=== PATIENT | male | born 1995 | race American Indian/Alaskan Native ===

== ENCOUNTER 2019-11-12 10:09 | Emergency (ER) | payer SELFPAY ==
[2019-11-12 10:16] VITALS: BP 139/86
[2019-11-12] MEDS ORDERED: ASPIRIN 81 MG TAB CHEW PO ONE (12:31)
[2019-11-12 12:58] LABS: Basophils % (Auto) 0.5 % (0.0-1.8); Eosinophils # (Auto) 0.1 K/mm3 (0.0-0.4); Eosinophils % (Auto) 0.8 % (0.0-4.3); Hematocrit 41.4 % (35.5-45.6); Hemoglobin 14.5 gm/dl (11.8-15.2); Lymphocytes # (Auto) 2.4 K/mm3 (1.2-5.4); Mean Corpuscular HGB Conc 35 % (32-34); Mean Corpuscular Volume 92 fl (84-94); Monocytes # (Auto) 0.7 K/mm3 (0.0-0.8); Monocytes % (Auto) 8.2 % (0.0-7.3); Platelet Count 316 K/mm3 (140-440); Red Cell Distribution Width 13.4 % (13.2-15.2)
[2019-11-12 13:15] LABS: Alanine Aminotransferase 25 units/L (7-56); Albumin 4.8 g/dL (3.9-5); BUN/Creatinine Ratio 13; Blood Urea Nitrogen 12 mg/dL (9-20); Hemolysis Index 13
--- NOTE | 2019-11-12 13:23 | XRay Report ---
CHEST PA AND LATERAL VIEWS INDICATION: Chest Pain. COMPARISON: None. FINDINGS: Support devices: None. Heart: Within normal limits. Lungs/Pleura: No acute pulmonary or pleural findings. IMPRESSION: 1. No acute findings. Signer Name: Cheo Powers MD Signed: 11/12/2019 1:19 PM Workstation Name: [id number]
--- NOTE | 2019-11-12 16:27 | Cat Scan Report ---
CTA CHEST WITH IV CONTRAST INDICATION: Chest pain, shortness of breath. TECHNIQUE: Axial CT images were obtained through the chest after injection of 100 cc Omnipaque 350 IV contrast. 3 plane MIP reconstructions were produced. All CT scans at this location are performed using CT dose reduction for ALARA by means of automated exposure control. COMPARISON: None available. FINDINGS: Pulmonary Arteries: No pulmonary emboli. Thoracic Aorta: No acute abnormality. Heart: Normal. Lungs: No acute air space or interstitial disease. Pleura: No pleural effusion. No pneumothorax. Lymph Nodes: No significant adenopathy. Additional Findings: None. Upper Abdomen: No acute findings. Skeletal Structures: No significant osseous abnormality. IMPRESSION: 1. No CT evidence for pulmonary embolism. 2. No acute findings. Signer Name: hCeo Powers MD Signed: 11/12/2019 4:22 PM Workstation Name: [id number]
--- NOTE | 2019-11-12 16:39 | Emergency Department Report ---
<CINTHIA MALLORY - Last Filed: 11/13/19 19:17> ED Chest Pain HPI - General Chief Complaint: Chest Pain Stated Complaint: CP Time Seen by Provider: 11/12/19 12:22 Source: patient Mode of arrival: Ambulatory Limitations: No Limitations - History of Present Illness Initial Comments: Patient is a 24-year-old male presents emergency room with complaints of left- sided and substernal chest pain that began 4 days ago. He states that last night the pain felt constant. He states he feels a heaviness like someone is sitting on his chest and then occasionally has sharp stabbing pain. Patient states he took a baby aspirin today. He states he has associated nausea. He denies any radiation of the pain to the back or down the arms. He denies any vomiting, diarrhea, leg swelling, abdominal pain. He states that occasionally he does feel short of breath. He denies any past medical history. No allergies to medications. He states his family cardiac history is that his grandfather had an MA in his 60s. He denies any recent travel, recent surgery, immobilization. He states that he does take supplements such as creatine and protein. He states he previously smoked tobacco. He states he does drink alcohol. He denies any drug use. Severity scale (0 -10): 5 - Related Data Previous Rx's Medication Instructions Recorded Last Taken Type Magnesium Citrate 296 ml PO ONCE #1 bottle 03/01/15 Unknown Rx Azithromycin [Zithromax] 250 mg PO QDAY #4 tablet 03/18/15 Unknown Rx Promethazine /Codeine 5 ml PO Q6H PRN #120 ml 03/18/15 Unknown Rx [Phenergan/Codeine 6.25-10 mg/5Ml] Clindamycin [Clindamycin CAP] 300 mg PO Q8HR #60 capsule 11/02/19 Unknown Rx Ketorolac [Toradol] 10 mg PO Q8H PRN #20 tablet 11/02/19 Unknown Rx hydrOXYzine PAMOATE [Vistaril] 25 mg PO Q12HR PRN #20 capsule 11/02/19 Unknown Rx traMADoL [Ultram 50 MG tab] 50 mg PO Q6HR PRN #12 tablet 11/02/19 Unknown Rx Allergies Allergy/AdvReac Type Severity Reaction Status Date / Time No Known Allergies Allergy Verified 03/18/15 18:59 Heart Score - HEART Score History: Moderately suspicious EKG: Non-specific Age: < 45 Risk factors: 1-2 risk factors Troponin: < normal limit HEART Score: 3 ED Review of Systems Comment: All other systems reviewed and negative ED Past Medical Hx - Past Medical History Previous Medical History?: No - Surgical History Past Surgical History?: No - Social History Smoking Status: Former Smoker Substance Use Type: None - Medications Home Medications: Home Medications Medication Instructions Recorded Confirmed Last Taken Type Magnesium Citrate 296 ml PO ONCE #1 bottle 03/01/15 Unknown Rx Azithromycin [Zithromax] 250 mg PO QDAY #4 tablet 03/18/15 Unknown Rx Promethazine /Codeine 5 ml PO Q6H PRN #120 ml 03/18/15 Unknown Rx [Phenergan/Codeine 6.25-10 mg/5Ml] Clindamycin [Clindamycin CAP] 300 mg PO Q8HR #60 capsule 11/02/19 Unknown Rx Ketorolac [Toradol] 10 mg PO Q8H PRN #20 tablet 11/02/19 Unknown Rx hydrOXYzine PAMOATE [Vistaril] 25 mg PO Q12HR PRN #20 capsule 11/02/19 Unknown Rx traMADoL [Ultram 50 MG tab] 50 mg PO Q6HR PRN #12 tablet 11/02/19 Unknown Rx ED Physical Exam - General Limitations: No Limitations General appearance: alert, in no apparent distress - Head Head exam: Present: atraumatic, normocephalic - Eye Eye exam: Present: normal appearance - ENT ENT exam: Present: mucous membranes moist - Respiratory Respiratory exam: Present: normal lung sounds bilaterally. Absent: respiratory distress, wheezes, rales, rhonchi, stridor, chest wall tenderness, accessory muscle use, decreased breath sounds, prolonged expiratory - Cardiovascular Cardiovascular Exam: Present: regular rate, normal rhythm, normal heart sounds. Absent: systolic murmur, diastolic murmur, rubs, gallop - Extremities Exam Extremities exam: Absent: pedal edema - Neurological Exam Neurological exam: Present: alert, oriented X3 - Psychiatric Psychiatric exam: Present: normal affect, normal mood - Skin Skin exam: Present: warm, dry, intact ED Course - Reevaluation(s) Reevaluation #1: 11/13/19 17:42 Spoke to patient's mother did not give any personal health information, just advised that we needed to speak with the patient urgently. She states that she will get into contact with him and I gave her the hospital number. MIKE score - Mike Score Age > 65: (0) No Aspirin use within the Past 7 Days: (1) Yes 3 or more CAD Risk Factors: (0) No 2 or more Angina events in past 24 hrs: (0) No Known CAD with more than 50% Stenosis: (0) No Elevated Cardiac Markers: (0) No ST Deviation Greater than 0.5mm: (0) No MIKE Score: 1 ED Medical Decision Making - Lab Data Result diagrams: 11/12/19 12:35 11/12/19 12:35 Lab Results 11/12/19 11/12/19 11/12/19 Range/Units 12:35 12:35 13:42 WBC 8.2 (4.5-11.0) K/mm3 RBC 4.50 (3.65-5.03) M/mm3 Hgb 14.5 (11.8-15.2) gm/dl Hct 41.4 (35.5-45.6) % MCV 92 (84-94) fl MCH 32 (28-32) pg MCHC 35 H (32-34) % RDW 13.4 (13.2-15.2) % Plt Count 316 (140-440) K/mm3 Lymph % (Auto) 29.0 (13.4-35.0) % [place] % (Auto) 8.2 H (0.0-7.3) % Eos % (Auto) 0.8 (0.0-4.3) % Baso % (Auto) 0.5 (0.0-1.8) % Lymph # 2.4 (1.2-5.4) K/mm3 [place] # 0.7 (0.0-0.8) K/mm3 Eos # 0.1 (0.0-0.4) K/mm3 Baso # 0.0 (0.0-0.1) K/mm3 Seg Neutrophils % 61.5 (40.0-70.0) % Seg Neutrophils # 5.0 (1.8-7.7) K/mm3 Sodium 139 (137-145) mmol/L Potassium 3.8 (3.6-5.0) mmol/L Chloride 100.1 (98-107) mmol/L Carbon Dioxide 25 (22-30) mmol/L Anion Gap 18 mmol/L BUN 12 (9-20) mg/dL Creatinine 0.9 (0.8-1.3) mg/dL Estimated GFR > 60 ml/min BUN/Creatinine Ratio 13 % Glucose 98 (75-100) mg/dL Calcium 10.0 (8.4-10.2) mg/dL Magnesium (1.7-2.3) mg/dL Total Bilirubin 0.40 (0.1-1.2) mg/dL AST 51 H (5-40) units/L ALT 25 (7-56) units/L Alkaline Phosphatase 55 (35-129) units/L Total Creatine Kinase (55-170) units/L Troponin T < 0.010 < 0.010 (0.00-0.029) ng/mL NT-Pro-B Natriuret Pep 10.86 (0-450) pg/mL Total Protein 8.4 H (6.3-8.2) g/dL Albumin 4.8 (3.9-5) g/dL Albumin/Globulin Ratio 1.3 % TSH (0.270-4.200) mlU/mL 11/12/19 11/12/19 Range/Units 13:42 13:42 WBC (4.5-11.0) K/mm3 RBC (3.65-5.03) M/mm3 Hgb (11.8-15.2) gm/dl Hct (35.5-45.6) % MCV (84-94) fl MCH (28-32) pg MCHC (32-34) % RDW (13.2-15.2) % Plt Count (140-440) K/mm3 Lymph % (Auto) (13.4-35.0) % [place] % (Auto) (0.0-7.3) % Eos % (Auto) (0.0-4.3) % Baso % (Auto) (0.0-1.8) % Lymph # (1.2-5.4) K/mm3 [place] # (0.0-0.8) K/mm3 Eos # (0.0-0.4) K/mm3 Baso # (0.0-0.1) K/mm3 Seg Neutrophils % (40.0-70.0) % Seg Neutrophils # (1.8-7.7) K/mm3 Sodium (137-145) mmol/L Potassium (3.6-5.0) mmol/L Chloride (98-107) mmol/L Carbon Dioxide (22-30) mmol/L Anion Gap mmol/L BUN (9-20) mg/dL Creatinine (0.8-1.3) mg/dL Estimated GFR ml/min BUN/Creatinine Ratio % Glucose (75-100) mg/dL Calcium (8.4-10.2) mg/dL Magnesium 2.00 (1.7-2.3) mg/dL Total Bilirubin (0.1-1.2) mg/dL AST (5-40) units/L ALT (7-56) units/L Alkaline Phosphatase (35-129) units/L Total Creatine Kinase 2555 H (55-170) units/L Troponin T (0.00-0.029) ng/mL NT-Pro-B Natriuret Pep (0-450) pg/mL Total Protein (6.3-8.2) g/dL Albumin (3.9-5) g/dL Albumin/Globulin Ratio % TSH 2.490 (0.270-4.200) mlU/mL - EKG Data EKG shows normal: sinus rhythm, axis Rate: bradycardia - EKG Data 11/12/19 10:[address] elevation secondary to IVCD no STEMI 11/12/19 13:[address] Rollins states ST elevation secondary IVCD, no STEMI - Radiology Data Radiology results: report reviewed CHEST PA AND LATERAL VIEWS INDICATION: Chest Pain. COMPARISON: None. FINDINGS: Support devices: None. Heart: Within normal limits. Lungs/Pleura: No acute pulmonary or pleural findings. IMPRESSION: 1. No acute findings. Signer Name: Cheo Powers MD Signed: 11/12/2019 1:19 PM Workstation Name: [id number] Transcribed By: CHRISTOPHER Dictated By: Cheo Powers MD Electronically Authenticated By: Cheo Powers MD Signed Date/Time: 11/12/191318 DD/ 1318 TD/TT: CTA CHEST WITH IV CONTRAST INDICATION: Chest pain, shortness of breath. TECHNIQUE: Axial CT images were obtained through the chest after injection of 100 cc Omnipaque 350 IV contrast. 3 plane MIP reconstructions were produced. All CT scans at this location are performed using CT dose reduction for ALARA by means of automated exposure control. COMPARISON: None available. FINDINGS: Pulmonary Arteries: No pulmonary emboli. Thoracic Aorta: No acute abnormality. Heart: Normal. Lungs: No acute air space or interstitial disease. Pleura: No pleural effusion. No pneumothorax. Lymph Nodes: No significant adenopathy. Additional Findings: None. Upper Abdomen: No acute findings. Skeletal Structures: No significant osseous abnormality. IMPRESSION: 1. No CT evidence for pulmonary embolism. 2. No acute findings. Signer Name: Cheo Powers MD Signed: 11/12/2019 4:22 PM Workstation Name: [id number] Transcribed By: CHRISTOPHER Dictated By: Cheo Powers MD Electronically Authenticated By: Cheo Powers MD Signed Date/Time: 11/12/191621 DD/ 18 TD/TT: - Medical Decision Making Patient is a 24-year-old male presents emergency room with complaints of left- sided and substernal chest pain that began 4 days ago. He states that last night the pain felt constant. He states he feels a heaviness like someone is sitting on his chest and then occasionally has sharp stabbing pain. Patient states he took a baby aspirin today. He states he has associated nausea. He denies any radiation of the pain to the back or down the arms. He denies any vomiting, diarrhea, leg swelling, abdominal pain. He states that occasionally he does feel short of breath. He denies any past medical history. No allergies to medications. He states his family cardiac history is that his grandfather had an MA in his 60s. He denies any recent travel, recent surgery, immobilization. He states that he does take supplements such as creatine and protein. He states he previously smoked tobacco. He states he does drink alcohol. He denies any drug use. Vitals are normal. No abnormality on physical exam as documented in chart. vitals are normal. no abnormality on examination as documented on chart. labs are normal. troponin is negative x2. EKG with sinus bradycardia RBBB, ST elevation secondary to IVCD, no STEMI. repeat EKG with no significant change, Dr. Rollins states ST elevation secondary IVCD, no STEMI. CXR: 1. No acute findings. DR. Rollins ER attending recommended to order CTA chest to r/o lung causes such as PE or aortic dissection, 1. No CT evidence for pulmonary embolism. 2. No acute findings. discussed all findings wi th Dr. Rollins who advised that pt can follow up as an outpatient with cardiology. advised pt Please follow-up with a business supervisor. Please follow-up with your primary care doctor. Return to emergency room for any new or worsening symptoms. Upon reviewing and signing my charts today patient CK resulted after discharge and is 2555, he was not complaining of any dark urine or back pain, his only complaint was the chest pain, patient is healthy and active, he has no kidney dysfunction 11/13/19 17:42 Spoke to patient's mother did not give any personal health information, just advised that we needed to speak with the patient urgently. She states that she will get into contact with him and I gave her the hospital number. I discussed case with Dr. Rollins, ER attending he states that given that patient is healthy with no medical problems elevation in CK is likely not harmful, he states that if patient does present back then to repeat his CK and can give patient IV fluids. ED Disposition Clinical Impression: Nausea, Abnormal EKG Chest pain Qualifiers: Chest pain type: unspecified Qualified Code(s): R07.9 - Chest pain, unspecified Dyspnea Qualifiers: Dyspnea type: unspecified Qualified Code(s): R06.00 - Dyspnea, unspecified Disposition: DC-01 TO HOME OR SELFCARE Is pt being admited?: No Does the pt Need Aspirin: Yes Condition: Stable Instructions: Chest Pain (ED), Dyspnea (ED) Additional Instructions: Please follow-up with a business supervisor. Please follow-up with your primary care doctor. Return to emergency room for any new or worsening symptoms. Referrals: YUNG CURIEL MD [Staff Physician] - 2-3 Days LACEY PERRY MD [Staff Physician] - 2-3 Days Time of Disposition: 16:42 Print Language: CHINESE <YEE BUCK - Last Filed: 11/14/19 22:48> ED Review of Systems ROS: Stated complaint: CP Other details as noted in HPI ED Course Vital Signs 11/12/19 11/12/19 10:14 15:02 Temperature 97.9 F Pulse Rate 60 Respiratory 20 18 Rate Blood Pressure 139/86 [Left] O2 Sat by Pulse 99 99 Oximetry ED Medical Decision Making - Lab Data Result diagrams: 11/12/19 12:35 11/12/19 12:35 - Medical Decision Making 11/14/19 01:35a Patient called the ed regarding message/call that he received yesterday. I am not personally familiar with this patient however, I did review medical record. I explained that call back was regarding elevated CK levels. Patient states he does take creatinine but has not taken in 1 month. He also states that he exercises regularly and has been exercising more lately. He does not complain of any dark discoloration of his urine or [employer] colored urine. I explained that the physician preferred that he come back to the ER for repeat CK levels and IV fluids. Patient states he may come back later today depending on how he feels. I explained to him that if he does not return here that he should at least try to follow-up with a primary care physician for repeat labs. Patient explains that follow-up will be difficult due to lack of insurance. Patient encouraged to present prior to the end of my shift at 6 AM (since I am failure with the pt and can expedite his care). I informed him if he does come this am then make triage nurse aware that he was called back to come to the ED. Critical care attestation.: If time is entered above; I have spent that time in minutes in the direct care of this critically ill patient, excluding procedure time.
== END 2019-11-12 16:57 | disposition home or self-care (01) ==
LOC: ED 10:09
DX: R07.81 Pleurodynia (principal); R06.00 Dyspnea, unspecified; R11.0 Nausea; R94.31 Abnormal electrocardiogram [ECG] [EKG]; Z87.891 Personal history of nicotine dependence
CPT/HCPCS: 36415; 71046; 71275; 80053; 82550; 83735; 83880; 84443; 84484; 85025; 93005; 99285; Q9967

== ENCOUNTER 2019-11-15 19:07 | Observation (INO) | payer OTHER ==
[2019-11-15] MEDS ORDERED: SODIUM CHLORIDE 0.9% 1000 ML 1,000 ML IV ONE ×2 (20:13→21:53)
--- NOTE | 2019-11-15 20:39 | Emergency Department Report ---
<ELIZABETH PEREZ III - Last Filed: 11/15/19 22:20> ED General Adult HPI - General Chief complaint: Chest Pain Stated complaint: CP Time Seen by Provider: 11/15/19 19:51 - Related Data Previous Rx's Medication Instructions Recorded Last Taken Type Magnesium Citrate 296 ml PO ONCE #1 bottle 03/01/15 Unknown Rx Azithromycin [Zithromax] 250 mg PO QDAY #4 tablet 03/18/15 Unknown Rx Promethazine /Codeine 5 ml PO Q6H PRN #120 ml 03/18/15 Unknown Rx [Phenergan/Codeine 6.25-10 mg/5Ml] Clindamycin [Clindamycin CAP] 300 mg PO Q8HR #60 capsule 11/02/19 Unknown Rx Ketorolac [Toradol] 10 mg PO Q8H PRN #20 tablet 11/02/19 Unknown Rx hydrOXYzine PAMOATE [Vistaril] 25 mg PO Q12HR PRN #20 capsule 11/02/19 Unknown Rx traMADoL [Ultram 50 MG tab] 50 mg PO Q6HR PRN #12 tablet 11/02/19 Unknown Rx Allergies Allergy/AdvReac Type Severity Reaction Status Date / Time No Known Allergies Allergy Verified 03/18/15 18:59 ED Past Medical Hx - Medications Home Medications: Home Medications Medication Instructions Recorded Confirmed Last Taken Type Magnesium Citrate 296 ml PO ONCE #1 bottle 03/01/15 Unknown Rx Azithromycin [Zithromax] 250 mg PO QDAY #4 tablet 03/18/15 Unknown Rx Promethazine /Codeine 5 ml PO Q6H PRN #120 ml 03/18/15 Unknown Rx [Phenergan/Codeine 6.25-10 mg/5Ml] Clindamycin [Clindamycin CAP] 300 mg PO Q8HR #60 capsule 11/02/19 Unknown Rx Ketorolac [Toradol] 10 mg PO Q8H PRN #20 tablet 11/02/19 Unknown Rx hydrOXYzine PAMOATE [Vistaril] 25 mg PO Q12HR PRN #20 capsule 11/02/19 Unknown Rx traMADoL [Ultram 50 MG tab] 50 mg PO Q6HR PRN #12 tablet 11/02/19 Unknown Rx ED Course - Reevaluation(s) Reevaluation #1: I reviewed the findings and management of this patient in real-time and I have personally seen and examined this patient and participated in the decision making for this patient with the midlevel. Patient is a 24-year-old male that presents emergency room with a repeat CK. Patient was here 3 days ago and CK was drawn and it was elevated. Patient was then called to return to the hospital for repeat CK. Patient CK came back higher than it did the last time. Patient clinical findings are consistent with rhabdo. I examined the patient. Lung sounds are clear, abdominal exam negative, CV exam shows normal S1 and S2, no murmur, rub. I discussed all results with patient. I discussed plan of care with patient. Patient agrees with plan of care and admission. Patient to be admitted to the hospitalist service. 11/15/19 22:18 - Consultations Consultation #1: Hospitalist consulted for admission. Hospitalist to admit patient. 11/15/19 22:20 ED Medical Decision Making - Lab Data Result diagrams: 11/15/19 20:27 11/15/19 20:27 ED Disposition Clinical Impression: Atypical chest pain Rhabdomyolysis Qualifiers: Rhabdomyolysis type: non-traumatic Qualified Code(s): M62.82 - Rhabdomyolysis Disposition: DC-09 OP ADMIT IP TO THIS HOSP Condition: Fair <CINTHIA MALLORY - Last Filed: 11/16/19 00:46> ED General Adult HPI - General Source: patient Mode of arrival: Ambulatory Limitations: No Limitations - History of Present Illness Initial comments: Patient is a 24-year-old male who presents emergency room with complaints of chest pain that has been going on for approximately a week. He states that it is substernal and occasionally feels like a sharp pain. He states that it hurts to press. He states that he was previously on antidepressants for anxiety and lately has been having panic attacks but is not currently on any medications. He states that he does not really want to take any medications for anxiety or depression. He denies any SI or HI. He reports he occasionally feels short of breath. He denies any nausea, vomiting, diarrhea, fever, leg swelling, hem optysis, cough, back pain, dark urine. He denies any other past medical history. No allergies to medications. Patient was evaluated in the emergency department 3 days ago for these symptoms and his CK resulted after discharge, he was called to return to the emergency department for repeat CK, CK ordered. ED Review of Systems ROS: Stated complaint: CP Other details as noted in HPI Comment: All other systems reviewed and negative ED Past Medical Hx - Past Medical History Previous Medical History?: No - Surgical History Past Surgical History?: No - Social History Smoking Status: Never Smoker Substance Use Type: None ED Physical Exam - General Limitations: No Limitations General appearance: alert, in no apparent distress - Head Head exam: Present: atraumatic, normocephalic - Eye Eye exam: Present: normal appearance - ENT ENT exam: Present: mucous membranes moist - Respiratory Respiratory exam: Present: normal lung sounds bilaterally. Absent: respiratory distress, wheezes, rales, rhonchi, stridor, chest wall tenderness, accessory muscle use, decreased breath sounds, prolonged expiratory - Cardiovascular Cardiovascular Exam: Present: regular rate, normal rhythm, normal heart sounds. Absent: systolic murmur, diastolic murmur, rubs, gallop - Neurological Exam Neurological exam: Present: alert, oriented X3 - Psychiatric Psychiatric exam: Present: normal affect, normal mood - Skin Skin exam: Present: warm, dry, intact ED Course Vital Signs 11/15/19 11/16/19 19:42 00:14 Temperature 98 F 97.7 F Pulse Rate 67 67 Respiratory 18 16 Rate Blood Pressure 130/88 Blood Pressure 137/81 [Left] O2 Sat by Pulse 99 99 Oximetry ED Medical Decision Making - Lab Data Result diagrams: 11/15/19 20:27 11/15/19 20:27 Lab Results 11/15/19 11/15/19 Range/Units 20:27 20:27 WBC 5.6 (4.5-11.0) K/mm3 RBC 4.42 (3.65-5.03) M/mm3 Hgb 14.1 (11.8-15.2) gm/dl Hct 40.6 (35.5-45.6) % MCV 92 (84-94) fl MCH 32 (28-32) pg MCHC 35 H (32-34) % RDW 13.4 (13.2-15.2) % Plt Count 343 (140-440) K/mm3 Lymph % (Auto) 31.0 (13.4-35.0) % [place] % (Auto) 9.3 H (0.0-7.3) % Eos % (Auto) 1.5 (0.0-4.3) % Baso % (Auto) 0.5 (0.0-1.8) % Lymph # 1.7 (1.2-5.4) K/mm3 [place] # 0.5 (0.0-0.8) K/mm3 Eos # 0.1 (0.0-0.4) K/mm3 Baso # 0.0 (0.0-0.1) K/mm3 Seg Neutrophils % 57.7 (40.0-70.0) % Seg Neutrophils # 3.2 (1.8-7.7) K/mm3 Sodium 140 (137-145) mmol/L Potassium 3.7 (3.6-5.0) mmol/L Chloride 99.5 (98-107) mmol/L Carbon Dioxide 28 (22-30) mmol/L Anion Gap 16 mmol/L BUN 6 L (9-20) mg/dL Creatinine 1.0 (0.8-1.3) mg/dL Estimated GFR > 60 ml/min BUN/Creatinine Ratio 6 % Glucose 98 (75-100) mg/dL Calcium 9.8 (8.4-10.2) mg/dL Total Bilirubin 0.40 (0.1-1.2) mg/dL AST 54 H (5-40) units/L ALT 31 (7-56) units/L Alkaline Phosphatase 53 (35-129) units/L Total Creatine Kinase 3579 H (55-170) units/L Troponin T < 0.010 (0.00-0.029) ng/mL C-Reactive Protein 0.00 (0.00-1.30) mg/dL Total Protein 8.2 (6.3-8.2) g/dL Albumin 4.8 (3.9-5) g/dL Albumin/Globulin Ratio 1.4 % - EKG Data EKG shows normal: sinus rhythm, axis, intervals Rate: normal - EKG Data 11/15/19 22:[address] elevation secondary to IVCD no STEMI no change compared to 11/12/2019 - Medical Decision Making Patient is a 24-year-old male who presents emergency room with complaints of chest pain that has been going on for approximately a week. He states that it is substernal and occasionally feels like a sharp pain. He states that it hurts to press. He states that he was previously on antidepressants for anxiety and lately has been having panic attacks but is not currently on any medications. He states that he does not really want to take any medications for anxiety or depression. He denies any SI or HI. He reports he occasionally feels short of breath. He denies any nausea, vomiting, diarrhea, fever, leg swelling, hemoptysis, cough, back pain, dark urine. He denies any other past medical history. No allergies to medications. Patient was evaluated in the emergency department 3 days ago for these symptoms and his CK resulted after discharge, he was called to return to the emergency department for repeat CK, CK ordered. Vitals are stable. EKG with no change from prior, patient has right bundle branch block, ST elevation secondary to interventricular conduction delay, no STEMI. Troponin is negative. Labs significant for elevated CK, 3 days ago patient CK was 2555, today patient CK is 3579, likely secondary to frequent exercise and taking of supplements. Patient will need to be admitted for rhabdomyolysis for fluid administration and trending of CK levels. Renal function is normal. Patient was evaluated by Dr. Perez, ER attending at the bedside and he also recommends admission, he spoke with Dr. Fine, hospitalist who accepts the resumes care of patient, patient will be admitted to hospitalist service. - Differential Diagnosis Rhabdomyolysis, CHI, ACS, pericarditis, dehydration Critical care attestation.: If time is entered above; I have spent that time in minutes in the direct care of this critically ill patient, excluding procedure time. ED Disposition Is pt being admited?: Yes Does the pt Need Aspirin: No Time of Disposition: 22:28
[2019-11-15 21:06] LABS: Basophils % (Auto) 0.5 % (0.0-1.8); Eosinophils # (Auto) 0.1 K/mm3 (0.0-0.4); Eosinophils % (Auto) 1.5 % (0.0-4.3); Hematocrit 40.6 % (35.5-45.6); Hemoglobin 14.1 gm/dl (11.8-15.2); Lymphocytes # (Auto) 1.7 K/mm3 (1.2-5.4); Mean Corpuscular HGB Conc 35 % (32-34); Mean Corpuscular Volume 92 fl (84-94); Monocytes # (Auto) 0.5 K/mm3 (0.0-0.8); Monocytes % (Auto) 9.3 % (0.0-7.3); Platelet Count 343 K/mm3 (140-440); Red Blood Count 4.42 M/mm3 (3.65-5.03); Red Cell Distribution Width 13.4 % (13.2-15.2)
[2019-11-15 21:30] LABS: Alanine Aminotransferase 31 units/L (7-56); Albumin 4.8 g/dL (3.9-5); BUN/Creatinine Ratio 6; Blood Urea Nitrogen 6 mg/dL (9-20); Calcium 9.8 mg/dL (8.4-10.2); Hemolysis Index 9
[2019-11-16] MEDS ORDERED: MORPHINE 2 MG/1 ML INJ IV PRN (00:14)
[2019-11-16] MEDS ORDERED: ONDANSETRON 4 MG/2 ML INJ IV PRN (00:15)
[2019-11-16] MEDS ORDERED: NITROGLYCERIN 0.4 MG TAB SUBL SL PRN (00:18)
[2019-11-16 00:49] LABS: Bilirubin,Urine NEG (Negative); Blood,Urine NEG (Negative); Color,Urine Colorless (Yellow); Protein,Urine <15 mg/dL mg/dL (Negative); Urobilinogen,Urine < 2.0 mg/dL (<2.0)
[2019-11-16] MEDS: ACETAMINOPHEN 325 MG TAB PO PRN ×2 (01:59→15:55)
[2019-11-16] MEDS: HEPARIN 5,000 UNIT/1 ML VIAL SUB-Q SCH ×4 (02:02→23:40)
--- NOTE | 2019-11-16 06:08 | History and Physical Report ---
History of Present Illness Date of examination: 11/15/19 Date of admission: 11/15/19 22:22 Chief complaint: Chief complaint is chest pain, other complaint include shortness of breath History of present illness: History of presenting illness, patient is a 24-year-old male who presented 3 days prior to yesterday with chest pain which he described as pressure-like and squeezing pain, pain is worse with movement and breathing associated with shortness of breath. There was no history of cough, fever or chills, nausea or vomiting. Patient said there was a period of time he was weak and lying on the floor for some time, patient was seen 3 days ago in the emergency room and evaluated for chest pain and was recalled yesterday 11/15/2019 because of an CPK elevated, CPK was repeated and showed consistent high level and patient was subsequently presented for admission for rhabdomyolysis. Past History Past Medical History: diabetes Social history: other (ANXIETY ) Medications and Allergies Allergies Allergy/AdvReac Type Severity Reaction Status Date / Time No Known Allergies Allergy Verified 03/18/15 18:59 Home Medications Medication Instructions Recorded Confirmed Last Taken Type Magnesium Citrate 296 ml PO ONCE #1 bottle 03/01/15 Unknown Rx Azithromycin [Zithromax] 250 mg PO QDAY #4 tablet 03/18/15 Unknown Rx Promethazine /Codeine 5 ml PO Q6H PRN #120 ml 03/18/15 Unknown Rx [Phenergan/Codeine 6.25-10 mg/5Ml] Clindamycin [Clindamycin CAP] 300 mg PO Q8HR #60 capsule 11/02/19 Unknown Rx Ketorolac [Toradol] 10 mg PO Q8H PRN #20 tablet 11/02/19 Unknown Rx hydrOXYzine PAMOATE [Vistaril] 25 mg PO Q12HR PRN #20 capsule 11/02/19 Unknown Rx traMADoL [Ultram 50 MG tab] 50 mg PO Q6HR PRN #12 tablet 11/02/19 Unknown Rx Active Meds: Active Medications Acetaminophen (Tylenol) 650 mg PO Q4H PRN PRN Reason: Headache Last Admin: 11/16/19 01:59 Dose: 650 mg Documented by: Aspirin (Aspirin) 325 mg PO QDAY [facility] Heparin Sodium (Porcine) (Heparin) 5,000 unit SUB-Q Q12HR [facility] Last Admin: 11/16/19 02:02 Dose: Not Given Documented by: Sodium Bicarbonate 150 meq/ (Dextrose) 1,150 mls @ 75 mls/hr IV DIRECT ALLAN Morphine Sulfate (Morphine) 2 mg IV Q4H PRN PRN Reason: Pain, Moderate (4-6) Nitroglycerin (Nitrostat) 0.4 mg SL .Q5MIN PRN PRN Reason: Chest Pain Ondansetron HCl (Zofran) 4 mg IV Q8H PRN PRN Reason: Nausea And Vomiting Review of Systems Constitutional: no weight loss, no weight gain, no fever, no chills, no sweats, no night sweats, no anorexia, no fatigue, no weakness, no malaise, no chronic pain Eyes: bilateral: other (NO BILATERAL EYE SYMPTOM) Ears, nose, mouth and throat: no ear pain, no ear discharge, no tinnitis, no decreased hearing, no nose pain, no mouth pain, no dysphagia, no headache, no vertigo Cardiovascular: chest pain, shortness of breath, no palpitations, no rapid/irregular heart beat, no lightheadedness Respiratory: shortness of breath Gastrointestinal: no abdominal pain, no nausea, no vomiting, no diarrhea, no constipation, no change in bowel habits, no hematemesis, no jaundice Rectal: no pain Musculoskeletal: no neck stiffness, no neck pain, no shooting arm pain, no arm numbness/tingling, no low back pain, no shooting leg pain Integumentary: no rash, no pruritis, no redness, no sores, no wounds, no jaundice, no boils, no acne Neurological: no weakness, no parathesias, no numbness, no tingling, no seizures, no syncope, no tremors, no vertigo, no headaches, no migraines, no convulsions, no aphasia, no change in speech, no change in mentation, no confusion Psychiatric: anxiety Endocrine: no cold intolerance, no heat intolerance, no polydipsia, no polyuria Hematologic/Lymphatic: no easy bruising, no easy bleeding Allergic/Immunologic: no urticaria, no allergic rhinitis Exam - Constitutional Vitals: Temp Pulse Resp BP Pulse Ox 97.7 F 67 20 137/81 99 11/16/19 00:14 11/16/19 00:14 11/16/19 01:59 11/16/19 00:14 11/16/19 00:14 General appearance: Present: no acute distress - EENT Eyes: Present: PERRL, EOM intact ENT: hearing intact, clear oral mucosa, dentition normal - Neck Neck: Present: supple, normal ROM - Respiratory Respiratory effort: normal - Cardiovascular Rhythm: regular Heart Sounds: Present: S1 & S2. Absent: systolic murmur, diastolic murmur - Extremities Extremities: no ischemia, No edema Peripheral Pulses: within normal limits - Abdominal General gastrointestinal: Present: soft, non-tender, non-distended. Absent: tender, distended, rigid, hepatomegaly, splenomegaly, mass Male genitourinary: Present: deferred - Rectal Rectal Exam: deferred - Integumentary Integumentary: Present: clear, warm, dry - Musculoskeletal Musculoskeletal: strength equal bilaterally - Psychiatric Psychiatric: appropriate mood/affect - Neurologic Neurologic: CNII-XII intact HEART Score - HEART Score Age: < 45 Risk factors: No known risk factors Troponin: Troponin T < 0.010 ng/mL (0.00-0.029) 11/15/19 20: Troponin: < normal limit - Critical Actions Critical Actions: 0-3 pts:0.9-1.7%risk of adverse cardiac event.Candidate for discharge Results - Labs CBC & Chem 7: 11/15/19 20:11/15/19 20: Labs: Laboratory Last Values WBC 5.6 K/mm3 (4.5-11.0) 11/15/19 20: RBC 4.42 M/mm3 (3.65-5.03) 11/15/19 20: Hgb 14.1 gm/dl (11.8-15.2) 11/15/19 20: Hct 40.6 % (35.5-45.6) 11/15/19 20: MCV 92 fl (84-94) 11/15/19 20: MCH 32 pg (28-32) 11/15/19 20: MCHC 35 % (32-34) H 11/15/19 20: RDW 13.4 % (13.2-15.2) 11/15/19 20: Plt Count 343 K/mm3 (140-440) 11/15/19 20: Lymph % (Auto) 31.0 % (13.4-35.0) 11/15/19 20:27 [place] % (Auto) 9.3 % (0.0-7.3) H 11/15/19 20: Eos % (Auto) 1.5 % (0.0-4.3) 11/15/19 20: Baso % (Auto) 0.5 % (0.0-1.8) 11/15/19 20: Lymph # 1.7 K/mm3 (1.2-5.4) 11/15/19 20: [place] # 0.5 K/mm3 (0.0-0.8) 11/15/19 20: Eos # 0.1 K/mm3 (0.0-0.4) 11/15/19 20: Baso # 0.0 K/mm3 (0.0-0.1) 11/15/19 20: Seg Neutrophils % 57.7 % (40.0-70.0) 11/15/19 20: Seg Neutrophils # 3.2 K/mm3 (1.8-7.7) 11/15/19 20: Sodium 140 mmol/L (137-145) 11/15/19 20: Potassium 3.7 mmol/L (3.6-5.0) 11/15/19 20: Chloride 99.5 mmol/L (98-107) 11/15/19 20: Carbon Dioxide 28 mmol/L (22-30) 11/15/19 20: Anion Gap 16 mmol/L 11/15/19 20: BUN 6 mg/dL (9-20) L 11/15/19 20: Creatinine 1.0 mg/dL (0.8-1.3) 11/15/19 20: Estimated GFR > 60 ml/min 11/15/19 20: BUN/Creatinine Ratio 6 % 11/15/19 20: Glucose 98 mg/dL (75-100) 11/15/19 20: Calcium 9.8 mg/dL (8.4-10.2) 11/15/19 20: Total Bilirubin 0.40 mg/dL (0.1-1.2) 11/15/19 20: AST 54 units/L (5-40) H 11/15/19 20: ALT 31 units/L (7-56) 11/15/19 20: Alkaline Phosphatase 53 units/L (35-129) 11/15/19 20: Total Creatine Kinase 3579 units/L (55-170) H 11/15/19 20: Troponin T < 0.010 ng/mL (0.00-0.029) 11/15/19 20: C-Reactive Protein 0.00 mg/dL (0.00-1.30) 11/15/19: Total Protein 8.2 g/dL (6.3-8.2) 11/15/19: Albumin 4.8 g/dL (3.9-5) 11/15/19 Albumin/Globulin Ratio 1.4 % 11/15/19: Urine Color Colorless (Yellow) 11/16/19 00:10 Urine Turbidity Clear (Clear) 11/16/19 00:10 Urine pH 6.0 (5.0-7.0) 11/16/19 00:10 Ur Specific [place] 1.003 (1.003-1.030) 11/16/19 00:10 Urine Protein <15 mg/dl mg/dL (Negative) 11/16/19 00:10 Urine Glucose (UA) Neg mg/dL (Negative) 11/16/19 00:10 Urine Ketones Neg mg/dL (Negative) 11/16/19 00:10 Urine Blood Neg (Negative) 11/16/19 00:10 Urine Nitrite Neg (Negative) 11/16/19 00:10 Urine Bilirubin Neg (Negative) 11/16/19 00:10 Urine Urobilinogen < 2.0 mg/dL (<2.0) 11/16/19 00:10 Ur Leukocyte Esterase Neg (Negative) 11/16/19 00:10 Urine WBC (Auto) 1.0 /HPF (0.0-6.0) 11/16/19 00:10 Urine RBC (Auto) 1.0 /HPF (0.0-6.0) 11/16/19 00:10 [place]/IV: Voiding Method Toilet IV Catheter Type [Right INT / Saline Lock Forearm] Assessment and Plan - Patient Problems (1) Atypical chest pain Current Visit: Yes Status: Acute Plan to address problem: 1. SERIAL CARDIAC ENZYMES 2. I.V MORPHINE FOR PAIN 3. I.V ZOFRAN FOR NAUSEA AND VOMITING 4. ASPIRIN PO 5. TYLENOL FOR HEADACHE 6. NITROGLYCERIN (SUBLINGUAL) PRN CHEST PAIN (2) Rhabdomyolysis Current Visit: Yes Status: Acute Qualifiers: Rhabdomyolysis type: non-traumatic Qualified Code(s): M62.82 - Rhabdomyol ysis Plan to address problem: 1. I.V NORMAL SALINE BOLUSES 2. I.V BICARBONATE DRIP 3. SERIAL CPK'S 4. BMP THIS MORNING
[2019-11-16 08:11] LABS: BUN/Creatinine Ratio 6; Blood Urea Nitrogen 5 mg/dL (9-20); Calcium 9.7 mg/dL (8.4-10.2); Hemolysis Index 12
[2019-11-16 08:13] LABS: Creatine Kinase MB 1.6 ng/mL (0.0-4.0)
[2019-11-16] MEDS: ASPIRIN 325 MG TAB PO SCH (10:04)
[2019-11-16 11:10] LABS: Creatine Kinase MB 1.3 ng/mL (0.0-4.0)
[2019-11-16] MEDS: SODIUM BICARBONATE 150 MEQ in DEXTROSE 5% IN WATER 1,000 ML IV SCH (16:48)
--- NOTE | 2019-11-16 18:59 | Progress Note ---
Assessment and Plan Assessment and plan: --Rhabdomyolysis; Vigorous IV hydration, input output monitoring Closely monitor CK levels, plenty of oral fluids --Atypical chest pain; secondary to myalgias and rhabdo Supportive care, pain medications Serial cardiac enzymes --Generalized myalgia and muscle cramps; Pain medications, supportive care --Ongoing tobacco use Smoking cessation counseling advised nicotine patch --DVT prophylaxis; Lovenox Monitor closely and adjust management as needed Plan of care reviewed with the patient and his nurse History Interval history: Seen and examined the patient at the bedside today Patient's chart and medications reviewed Patient feels slightly better CK level still high Preserved renal function Concerns reviewed Hospitalist Physical - Constitutional Vitals: Temp Pulse Resp BP Pulse Ox 99.6 F 66 18 104/57 99 11/16/19 09:11 11/16/19 09:11 11/16/19 09:11 11/16/19 09:11 11/16/19 09:11 General appearance: Present: no acute distress, well-nourished - EENT Eyes: Present: PERRL, EOM intact - Neck Neck: Present: supple, normal ROM - Respiratory Respiratory effort: normal Respiratory: bilateral: diminished, negative: rales, rhonchi, wheezing - Cardiovascular Rhythm: regular Heart Sounds: Present: S1 & S2 - Extremities Extremities: no ischemia, No edema - Abdominal General gastrointestinal: soft, non-tender, non-distended, normal bowel sounds - Integumentary Integumentary: Present: clear, warm - Psychiatric Psychiatric: appropriate mood/affect, cooperative - Neurologic Neurologic: CNII-XII intact, moves all extremities HEART Score - HEART Score Age: < 45 Risk factors: No known risk factors Troponin: Troponin T < 0.010 ng/mL (0.00-0.029) 11/16/19 10:22 Troponin: < normal limit - Critical Actions Critical Actions: 0-3 pts:0.9-1.7%risk of adverse cardiac event.Candidate for discharge Results - Labs CBC & Chem 7: 11/15/19 20:27 11/16/19 06:42 Labs: Laboratory Last Values WBC 5.6 K/mm3 (4.5-11.0) 11/15/19 20:27 RBC 4.42 M/mm3 (3.65-5.03) 11/15/19 20:27 Hgb 14.1 gm/dl (11.8-15.2) 11/15/19 20: Hct 40.6 % (35.5-45.6) 11/15/19 20: MCV 92 fl (84-94) 11/15/19 20: MCH 32 pg (28-32) 11/15/19 20: MCHC 35 % (32-34) H 11/15/19 20: RDW 13.4 % (13.2-15.2) 11/15/19 20: Plt Count 343 K/mm3 (140-440) 11/15/19 20: Lymph % (Auto) 31.0 % (13.4-35.0) 11/15/19 20: [place] % (Auto) 9.3 % (0.0-7.3) H 11/15/19 20: Eos % (Auto) 1.5 % (0.0-4.3) 11/15/19: Baso % (Auto) 0.5 % (0.0-1.8) 11/15/19 20: Lymph # 1.7 K/mm3 (1.2-5.4) 11/15/19 20: [place] # 0.5 K/mm3 (0.0-0.8) 11/15/19 20: Eos # 0.1 K/mm3 (0.0-0.4) 11/15/19 20: Baso # 0.0 K/mm3 (0.0-0.1) 11/15/19 20: Seg Neutrophils % 57.7 % (40.0-70.0) 11/15/19 20: Seg Neutrophils # 3.2 K/mm3 (1.8-7.7) 11/15/19 20: Sodium 143 mmol/L (137-145) 11/16/19 06:42 Potassium 3.5 mmol/L (3.6-5.0) L 11/16/19 06:42 Chloride 104.5 mmol/L (98-107) 11/16/19 06:42 Carbon Dioxide 26 mmol/L (22-30) 11/16/19 06:42 Anion Gap 16 mmol/L 11/16/19 06:42 BUN 5 mg/dL (9-20) L 11/16/19 06:42 Creatinine 0.9 mg/dL (0.8-1.3) 11/16/19 06:42 Estimated GFR > 60 ml/min 11/16/19 06:42 BUN/Creatinine Ratio 6 % 11/16/19 06:42 Glucose 105 mg/dL (75-100) H 11/16/19 06:42 Calcium 9.7 mg/dL (8.4-10.2) 11/16/19 06:42 Total Bilirubin 0.40 mg/dL (0.1-1.2) 11/15/19 20: AST 54 units/L (5-40) H 11/15/19 20: ALT 31 units/L (7-56) 11/15/19 20: Alkaline Phosphatase 53 units/L (35-129) 11/15/19 20: Total Creatine Kinase 3832 units/L (55-170) H 11/16/19 10:22 CK-MB (CK-2) 1.3 ng/mL (0.0-4.0) 11/16/19 10:22 CK-MB (CK-2) Rel Index 0.0 (0-4) 11/16/19 10:22 Troponin T < 0.010 ng/mL (0.00-0.029) 11/16/19 10:22 C-Reactive Protein 0.00 mg/dL (0.00-1.30) 11/15/19 20: Total Protein 8.2 g/dL (6.3-8.2) 11/15/19 20: Albumin 4.8 g/dL (3.9-5) 11/15/19 20: Albumin/Globulin Ratio 1.4 % 11/15/19 20: Urine Color Colorless (Yellow) 11/16/19 00:10 Urine Turbidity Clear (Clear) 11/16/19 00:10 Urine pH 6.0 (5.0-7.0) 11/16/19 00:10 Ur Specific [place] 1.003 (1.003-1.030) 11/16/19 00:10 Urine Protein <15 mg/dl mg/dL (Negative) 11/16/19 00:10 Urine Glucose (UA) Neg mg/dL (Negative) 11/16/19 00:10 Urine Ketones Neg mg/dL (Negative) 11/16/19 00:10 Urine Blood Neg (Negative) 11/16/19 00:10 Urine Nitrite Neg (Negative) 11/16/19 00:10 Urine Bilirubin Neg (Negative) 11/16/19 00:10 Urine Urobilinogen < 2.0 mg/dL (<2.0) 11/16/19 00:10 Ur Leukocyte Esterase Neg (Negative) 11/16/19 00:10 Urine WBC (Auto) 1.0 /HPF (0.0-6.0) 11/16/19 00:10 Urine RBC (Auto) 1.0 /HPF (0.0-6.0) 11/16/19 00:10 [place]/IV: Voiding Method Toilet IV Catheter Type [Right INT / Saline Lock Forearm] Active Medications - Current Medications Current Medications: Generic Name Dose Route Start Last Admin Trade Name Freq PRN Reason Stop Dose Admin Acetaminophen 650 mg 11/16/19 00:15 11/16/19 15:55 Tylenol PO 650 mg Q4H PRN Administration Headache Aspirin 325 mg 11/16/19 10:00 11/16/19 10:04 Aspirin PO 325 mg QDAY ALLAN Administration Heparin Sodium (Porcine) 5,000 unit 11/16/19 00:15 11/16/19 10:04 Heparin SUB-Q Not Given Q12HR [facility] Sodium Bicarbonate 150 meq/ 1,150 mls @ 75 mls/hr 11/16/19 01:00 11/16/19 16:48 Dextrose IV 75 mls/hr DIRECT ALLAN Administration Morphine Sulfate 2 mg 11/16/19 00:14 Morphine IV Q4H PRN Pain, Moderate (4-6) Nitroglycerin 0.4 mg 11/16/19 00:18 Nitrostat SL .Q5MIN PRN Chest Pain Ondansetron HCl 4 mg 11/16/19 00:15 Zofran IV Q8H PRN Nausea And Vomiting
[2019-11-16 19:00] LABS: Creatine Kinase MB 1.2 ng/mL (0.0-4.0)
[2019-11-16] MEDS ORDERED: SODIUM CHLORIDE 0.9% 1000 ML 1,000 ML IV ONE (19:07)
[2019-11-16] MEDS ORDERED: FUROSEMIDE 20 MG/2 ML INJ IV ONE (20:08)
[2019-11-17 09:06] VITALS: BP 115/72
[2019-11-17] MEDS: ASPIRIN 325 MG TAB PO SCH (09:19)
[2019-11-17] MEDS: HEPARIN 5,000 UNIT/1 ML VIAL SUB-Q SCH (09:19)
[2019-11-17] MEDS: ACETAMINOPHEN 325 MG TAB PO PRN (09:24)
[2019-11-17] MEDS ORDERED: FUROSEMIDE 40 MG/4 ML INJ IV SCH (10:00)
[2019-11-17] MEDS: SODIUM BICARBONATE 150 MEQ in DEXTROSE 5% IN WATER 1,000 ML IV SCH (10:05)
--- NOTE | 2019-11-17 13:50 | Discharge Summary ---
Providers - Providers Date of Admission: 11/15/19 22:22 Date of discharge: 11/17/19 Attending physician: EDWARD HOLDER Primary care physician: GUME MERCER MD Hospitalization Condition: Fair Disposition: [id number] LEFT AGAINST MED ADVICE Time spent for discharge: 35 min Exam - Constitutional Vitals: Temp Pulse Resp BP Pulse Ox 100.6 F H 65 18 115/72 96 11/17/19 08:34 11/17/19 05:56 11/17/19 08:34 11/17/19 08:34 11/17/19 05:56 Plan Follow up with: GUME MERCER MD [Primary Care Provider] - 3-5 Days
== END 2019-11-17 14:00 | disposition left against medical advice (07) ==
LOC: ED 19:07 → 3A 22:22 → 4A 11-16 01:33
PROVIDERS: ADMIT Internal Medicine; ATTEND Internal Medicine
DX: R07.89 Other chest pain (principal); M62.82 Rhabdomyolysis; E11.9 Type 2 diabetes mellitus without complications; F41.9 Anxiety disorder, unspecified; M62.838 Other muscle spasm; F17.200 Nicotine dependence, unspecified, uncomplicated; Z79.899 Other long term (current) drug therapy
CPT/HCPCS: 36415; 80048; 80053; 81001; 82550; 82553; 84484; 85025; 86140; 93005; 96361; 96365; 96366; 96372; 96375; 96376; 99284; G0378; J1644; J1940; J7030; J7070; J2270

== ENCOUNTER 2020-01-09 17:21 | Emergency (ER) | payer MEDICAID | END 2020-01-09 20:00 | disposition left against medical advice (07) | LOC: ED 17:21 | DX: R51.9 Headache, unspecified (principal); Z53.21 Procedure and treatment not carried out due to patient leaving prior to being seen by health care provider ==